=== PATIENT | female | born 2000 | race Caucasian/White ===

== ENCOUNTER 2023-07-06 10:52 | Emergency (ER) | payer BC ==
[~2023-07-06] VITALS: Ht 167.6 cm; Wt 61.2 kg
[2023-07-06 10:57] VITALS: BP_SYST 128; PULSE 88; RESP 18; TEMP 97.7; O2SAT 99
[2023-07-06 11:26] LABS: BASOPHILS % (AUTO) 0.2 % (0.0-2.0); EOSINOPHILS % (AUTO) 0.1 % (0.0-4.0); HEMATOCRIT 38.6 % (36-48); HEMOGLOBIN 13.1 g/dL (12.0-16.0); LYMPHOCYTES # (AUTO) 1.3 K/uL (1.0-5.5); LYMPHOCYTES % (AUTO) 10.1 % (20.5-51.5); MEAN CORPUSCULAR HEMOGLOBIN 30 pg (27-31); MEAN CORPUSCULAR HGB CONC 34 % (32-36); MEAN CORPUSCULAR VOLUME 88 fL (79.0-98.0); MONOCYTES # (AUTO) 0.5 K/uL (0.0-1.0); MONOCYTES % (AUTO) 3.9 % (1.7-9.3); NEUTROPHILS # (AUTO) 11.4 K/uL (1.8-7.7); NEUTROPHILS % (AUTO) 85.7 % (40.0-70.0); PLATELET COUNT (AUTO) 426 K/uL (130-430); RED BLOOD CELL COUNT(AUTO) 4.37 MIL/uL (4.2-6.2); RED CELL DISTRIBUTION WIDTH 13.3 % (9.0-15.0); WHITE BLOOD COUNT (AUTO) 13.3 K/uL (4.8-10.8)
[2023-07-06] MEDS: ONDANSETRON HCL 4 MG/2 ML VIAL IVP ONE (11:26)
[2023-07-06] MEDS: MORPHINE 4 MG INJ. 4 MG/ML VIAL IVP ONE (11:26)
[2023-07-06 11:34] LABS: CALCIUM 8.8 mg/dL (8.4-11.0); CREATININE 1.01 mg/dL (0.55-1.30); POTASSIUM 3.6 mmol/L (3.5-5.1)
[2023-07-06 11:39] LABS: ALBUMIN 3.1 g/dL (3.4-4.8); TOTAL BILIRUBIN 0.3 mg/dL (0.0-1.0); TOTAL PROTEIN, SERUM 6.3 g/dL (6.4-8.3)
[2023-07-06 11:45] LABS: SERUM HCG (QUALITATIVE) NEGATIVE (NEGATIVE)
[2023-07-06 11:53] LABS: BILIRUBIN,DIRECT 0.1 mg/dL (0.0-0.3)
[2023-07-06 12:28] LABS: BILIRUBIN,URINE NEGATIVE (NEGATIVE); BLOOD, URINE 2+ (NEGATIVE); CLARITY/URINE CLEAR (CLEAR); COLOR,URINE YELLOW (YELLOW); GLUCOSE,URINE NEGATIVE (NEGATIVE); KETONES,URINE 3+ (NEGATIVE); LEUKOCYTE ESTERASE ,URINE NEGATIVE (NEGATIVE); NITRITE, URINE NEGATIVE (NEGATIVE); PROTEIN URINE 2+ (NEGATIVE); UROBILINOGEN,URINE 0.2 (0.2-1.0)
[2023-07-06 13:13] LABS: BACTERIA,URINE FEW /HPF (None Seen); HYALINE CASTS, URINE 0-10 /LPF (None Seen); RBC,URINE 20-50 /HPF (0-3)
[2023-07-06 13:14] LABS: MUCUS,URINE 2+ /LPF (None Seen)
[2023-07-06] MEDS ORDERED: IBUP-1968 PO (13:37)
[2023-07-06] MEDS ORDERED: CEPH250C PO (13:37)
[2023-07-06] MEDS ORDERED: ACET-2634 PO (13:37)
[2023-07-06] MEDS: cefTRIAXone 1 GM in D5W 50 ML IV ONE (14:18)
[2023-07-06 14:34] VITALS: BP_SYST 134; PULSE 72; RESP 16; TEMP 97.7; O2SAT 97
== END 2023-07-06 14:30 | disposition home or self-care (01) ==
LOC: SED 10:52
DX: N20.0 Calculus of kidney (principal); R30.0 Dysuria; R33.9 Retention of urine, unspecified; R10.11 Right upper quadrant pain; R10.31 Right lower quadrant pain; R11.2 Nausea with vomiting, unspecified; Z79.899 Other long term (current) drug therapy
CPT/HCPCS: 99285; 74176; 96374; 96375; 80076; 80048; 81001; 84703; 83690; 85025; 87086; 36415; 81000; 81015; J0696; J2405; J2270; J7060